=== PATIENT | female | born 2000 | race Caucasian/White ===

== ENCOUNTER 2023-02-25 07:44 | Outpatient (CLI) | payer OTHER, SELFPAY ==
[2023-02-25 12:40] LABS: Chlamydia DNA Amplified* NOT DETECTED (No Detected); GC DNA Amplified* NOT DETECTED (No Detected)
== END 2023-02-25 07:45 | disposition home or self-care (01) ==
PROVIDERS: PCP Family Medicine; Visit Provider Family Medicine
DX: Z00.00 Encounter for general adult medical examination without abnormal findings (principal); D72.820 Lymphocytosis (symptomatic); R53.83 Other fatigue; F41.9 Anxiety disorder, unspecified; L70.9 Acne, unspecified; Z13.6 Encounter for screening for cardiovascular disorders; Z11.3 Encounter for screening for infections with a predominantly sexual mode of transmission
CPT/HCPCS: 80053; 80061; 84443; 87491; 87591

== ENCOUNTER 2025-06-27 15:28 | Outpatient (CLI) | payer OTHER, SELFPAY ==
[2025-06-27 22:03] LABS: Bacterial Vaginosis* POSITIVE (Negative); Candida glab/krus NOT DETECTED (No Detected)
[2025-06-29 07:48] LABS: GC DNA Amplified* NOT DETECTED (No Detected)
[2025-07-02 14:48] LABS: Chlamydia DNA Amplified* DETECTED (No Detected)
[2025-07-06 10:15] LABS: Pap Test Screened Manually Done
== END 2025-06-27 15:29 | disposition home or self-care (01) ==
PROVIDERS: PCP Family Medicine; Visit Provider Registered Nurse
DX: Z11.3 Encounter for screening for infections with a predominantly sexual mode of transmission (principal); Z12.4 Encounter for screening for malignant neoplasm of cervix
CPT/HCPCS: 81513; 86592; 86703; 86803; 87340; 87481; 87491; 87591; 87624; 87625; 87661; 88141; 88142; 88175